=== PATIENT | male | born 1980 | race Two or more races ===

== ENCOUNTER 2024-02-23 11:47 | Emergency (ER) | payer OTHER ==
[~2024-02-23] VITALS: Ht 180.3 cm; Wt 102.1 kg
[2024-02-23] MEDS ORDERED: KETOROLAC TROMETHAMINE 30 MG VIAL IV ONE (13:45)
[2024-02-23] MEDS ORDERED: FUROsemide 40 MG/4 ML VIAL IV ONE (13:45)
[2024-02-23] MEDS ORDERED: cloNIDine HCL 0.2 MG TABLET PO ONE (13:45)
[2024-02-23] MEDS ORDERED: ENALAPRILAT DIHYDRATE 2.5 MG/2 ML VIAL IV ONE (13:45)
[2024-02-23 14:25] LABS: HEMOGLOBIN 12.2 g/dL (13-16.00); MEAN CELL VOLUME 78.1 fL (80.0-100.00); MEAN CORPUSCULAR HEMOGLOBIN 26.5 pg (27.00-32.0); PLATELET COUNT 374 K/uL (150-450); RED BLOOD COUNT 4.61 M/uL (4.00-6.00); RED CELL DISTRIBUTION WIDTH 14.9 % (11.5-14.5)
[2024-02-23 15:01] LABS: ALBUMIN 3.1 gm/dL (3.4-5.0); BILIRUBIN TOTAL 0.15 mg/dL (0.3-1.2); CALCIUM 8.9 mg/dL (8.5-10.1); CREATININE SERUM 0.5 mg/dL (0.70-1.30); GFR 182.35; GLOBULINA 4.4 G/DL (2.4-3.5); POTASSIUM 3.65 mEq/L (3.5-5.1); TOTAL PROTEIN 7.5 gm/dL (6.4-8.2); URIC ACID 2.1 mg/dL (3.5-8.5)
[2024-02-23] MEDS ORDERED: HYZAAR 50-12.51 EACH PO (15:33)
[2024-02-23] MEDS ORDERED: DICLOFENAC SODI75 MG PO (15:33)
[2024-02-23] MEDS ORDERED: DUI500 PO (15:33)
== END 2024-02-23 16:24 | disposition home or self-care (01) ==
LOC: ER 11:48
PROVIDERS: General Practice
DX: I16.9 Hypertensive crisis, unspecified (principal); M25.571 Pain in right ankle and joints of right foot; M10.9 Gout, unspecified